=== PATIENT | female | born 1960 | race Caucasian/White ===

== ENCOUNTER 2018-03-03 15:28 | Emergency (ER) | payer OTHER ==
[~2018-03-03] VITALS: Ht 167.6 cm; Wt 108.9 kg
[~2018-03-03 15:28] MED LIST: K-DUR20 ME2 PO; Z.0.ADVAIR 250-501 E IH; Z.0.AMBIEN5 MG PO; Z.0.HYDROCHLOROTHIA2 PO; Z.0.SINGULAIR10 MG PO; Z.1.VERAPAMIL ER240 PO
--- OUTSIDE RECORDS SUMMARY | 2018-03-03 15:31 | XMS REPORT | CCD ---
Author Author Auto Generated Organization [facility] Address Unknown Phone Unavailable Care Team Providers Care Medical Delivery Technician Name Role Phone Waldo Charles CP [phone] Allergies, Adverse Reactions, Alerts Substance Reaction Status NKDA Active Problem List Condition Effective Dates Status Asthma Resolved Hypertension Resolved Hysterectomy Resolved Medications Medication Instructions Start Date End Date Status morphine Sulfate 6 mg, Route: IVP, Drug form: INJ, 03/17/2013 03/17/2013 Completed ONCE, Dosing Weight 111.818, kg, Priority: STAT, Start date: 03/17/13 0:12:00, Stop date: 03/17/13 0:12:00 promethazine 25 mg 25 mg=1 tab, PO, Q6H, Nausea & 03/17/2013 Ordered oral tablet Vomiting, # 15 tab, 0 Refill(s) ondansetron 4 mg, Route: IVP, Drug form: INJ, 03/16/2013 03/16/2013 Completed ONCE, Dosing Weight 111.818, kg, Priority: STAT, Start date: 03/16/13 23:47:00, Stop date: 03/16/13 23:47:00 morphine Sulfate 4 mg, Route: IVP, Drug form: INJ, 03/16/2013 03/16/2013 Completed ONCE, Dosing Weight 111.818, kg, Priority: STAT, Start date: 03/16/13 23:47:00, Stop date: 03/16/13 23:47:00 Versed 2 mg, Route: IVP, ONCE, Dosing 03/17/2013 03/17/2013 Completed Weight 111.818, kg, Priority: STAT, Start date: 03/17/13 0:53:00, Stop date: 03/17/13 0:53:00 fentanyl 100 microgram, Route: IV, ONCE, 03/17/2013 03/17/2013 Completed Dosing Weight 111.818, kg, Start date: 03/17/13 0:53:00, Stop date: 03/17/13 0:53:00 [place] 10/325 oral 1 tab, PO, Q6H, for pain, # 24 tab, 03/17/2013 Ordered tablet 0 Refill(s) fentanyl 100 microgram, Route: IV, ONCE, 03/17/2013 03/17/2013 Completed Dosing Weight 111.818, kg, Start date: 03/17/13 1:03:00, Stop date: 03/17/13 1:03:00 Versed 2 mg, Route: IVP, ONCE, Dosing 03/17/2013 03/17/2013 Completed Weight 111.818, kg, Start date: 03/17/13 1:08:00, Stop date: 03/17/13 1:08:00 etomidate 10 mg, Route: IV, ONCE, Dosing 03/17/2013 03/17/2013 Completed Weight 111.818, kg, Start date: 03/17/13 1:13:00, Stop date: 03/17/13 1:13:00 Vital Signs Most recent to oldest [Reference Range]: 1 2 3 Height 165.1 cm (03/16/2013 23:32:00) Temperature Oral [96.4-99.1 DegF] 98.2 DegF (03/17/2013 03:15:00) 98.4 DegF (03/16/2013 23:32:00) Systolic Blood Pressure [90-140 mmHg] 145 mmHg *HI* (03/17/2013 03:15:00) 134 mmHg (03/17/2013 02:35:00) 155 mmHg *HI* (03/17/2013 01:24:00) Diastolic Blood Pressure [60-90 mmHg] 85 mmHg (03/17/2013 03:15:00) 75 mmHg (03/17/2013 02:35:00) 82 mmHg (03/17/2013 01:24:00) Respiratory Rate [14-20 BRMIN] 18 BRMIN (03/17/2013 03:15:00) 17 BRMIN (03/17/2013 02:35:00) 14 BRMIN (03/17/2013 01:24:00) Peripheral Pulse Rate [60-100 bpm] 83 bpm (03/16/2013 23:32:00) Weight 111.818 kg (03/16/2013 23:32:00)
--- OUTSIDE RECORDS SUMMARY | 2018-03-03 15:31 | XMS REPORT | Continuity of Care Document ---
Author Author [facility] Interface Address Unknown Phone Unavailable Problems Problem Status Onset Date Classification Date Reported Comments Source RT ANKLE PAIN Active 03/16/2013 [facility] Asthma Resolved Problem 03/19/2013 [facility] Hypertension Resolved Problem 03/19/2013 [facility] Hysterectomy Resolved Problem 03/19/2013 [facility] Medications Medication Details Route Status Patient Instructions Ordering Provider Order Date Source promethazine 25 mg oral tablet 25 mg=1 tab, PO, Q6H, Nausea & Vomiting, # 15 tab, 0 Refill(s) Active [place] 03/17/2013 [facility] [place] 10/325 oral tablet 1 tab, PO, Q6H, for pain, # 24 tab, 0 Refill(s) Active [place] 03/17/2013 [facility] etomidate 10 mg, Route: IV, ONCE, Dosing Weight 111.818, kg, Start date: 03/17/13 1:13:00, Stop date: 03/17/13 1:13:00 Inactive [place] 03/17/2013 [facility] Versed 2 mg, Route: IVP, ONCE, Dosing Weight 111.818, kg, Start date: 03/17/13 1:08:00, Stop date: 03/17/13 1:08:00 Inactive [place] 03/17/2013 [facility] fentanyl 100 microgram, Route: IV, ONCE, Dosing Weight 111.818, kg, Start date: 03/17/13 1:03:00, Stop date: 03/17/13 1:03:00 Inactive [place] 03/17/2013 [facility] Versed 2 mg, Route: IVP, ONCE, Dosing Weight 111.818, kg, Priority: STAT, Start date: 03/17/13 0:53:00, Stop date: 03/17/13 0:53:00 Inactive [place] 03/17/2013 [facility] fentanyl 100 microgram, Route: IV, ONCE, Dosing Weight 111.818, kg, Start date: 03/17/13 0:53:00, Stop date: 03/17/13 0:53:00 Inactive [place] 03/17/2013 [facility] morphine Sulfate 6 mg, Route: IVP, Drug form: INJ, ONCE, Dosing Weight 111.818, kg, Priority: STAT, Start date: 03/17/13 0:12:00, Stop date: 03/17/13 0:12:00 Inactive [place] 03/17/2013 [facility] ondansetron 4 mg, Route: IVP, Drug form: INJ, ONCE, Dosing Weight 111.818, kg, Priority: STAT, Start date: 03/16/13 23:47:00, Stop date: 03/16/13 23:47:00 Inactive [place] 03/17/2013 [facility] morphine Sulfate 4 mg, Route: IVP, Drug form: INJ, ONCE, Dosing Weight 111.818, kg, Priority: STAT, Start date: 03/16/13 23:47:00, Stop date: 03/16/13 23:47:00 Inactive [place] 03/17/2013 [facility] Allergies, Adverse Reactions, Alerts Substance Category Reaction Severity Reaction type Status Date Reported Comments Source Immunizations Immunization Date Given Site Status Last Updated Comments Source Results Order Name Results Value Reference Range Date Interpretation Comments Source Ankle 2 views Ankle 2 views PROCEDURE: Ankle 2 views CLINICAL INFORMATION Post-Reduction COMPARISON: 03/17/2013 There is improved alignment of the distal fibular fracture and posterior malleolus fracture with slight lateral angulation. The tibiotalar joint appears anatomic. Bone fragment is identified in the posterior tibiotalar joint. Calcaneal spur measures 6 mm. Bone detail evaluation is limited secondary to the cast. SL: 14 03/17/2013 - - Read by: Yosi Burks Dictated Date/time: 03/17/13 02:56 Electronically Signed by: Yosi Burks MD 03/17/13 02:57 FINAL REPORT [facility] Vital Signs Vital Sign Value Date Comments Source Diastolic (mm Hg) 85 03/17/2013 [facility] Systolic (mm Hg) 145 03/17/2013 [facility] Temperature Oral (F) 98.2 F 03/17/2013 [facility] Respitory Rate 18 03/17/2013 [facility] Respitory Rate 17 03/17/2013 [facility] Systolic (mm Hg) 134 03/17/2013 [facility] Diastolic (mm Hg) 75 03/17/2013 [facility] Systolic (mm Hg) 155 03/17/2013 [facility] Diastolic (mm Hg) 82 03/17/2013 [facility] Respitory Rate 14 03/17/2013 [facility] Weight 111.818 03/17/2013 [facility] Height 165.1 cm 03/17/2013 [facility] Heart Rate 83 03/17/2013 [facility] Temperature Oral (F) 98.4 F 03/17/2013 [facility] Encounters Location Location Details Encounter Type Encounter Number Reason For Visit Attending Provider ADM Date DC Date Status Source [facility] Emergency [id number] TEJAL STRANGE 03/16/2013 03/17/2013 Active [facility] Procedures Procedure Code Date Perfomer Comments Source
== END 2018-03-03 17:09 | disposition home or self-care (01) ==
LOC: FSED 15:28
DX: H43.812 Vitreous degeneration, left eye (principal)
CPT/HCPCS: 99283